=== PATIENT | male | born 1985 | race Caucasian/White ===

== ENCOUNTER 2018-09-14 20:21 | Emergency (ER) | payer SELFPAY ==
--- NOTE | 2018-09-14 21:08 | EDM.PDOCBH ---
ED HPI GENERAL MEDICAL PROBLEM - General Chief Complaint: Drug or Alcohol Abuse Stated Complaint: SEEING THINGS HEARING THINGS Time Seen by Provider: 09/14/18 20:32 Source of Information: Reports: Patient, Family (), RN Notes Reviewed History Limitations: Reports: No Limitations - History of Present Illness INITIAL COMMENTS - FREE TEXT/NARRATIVE: The patient states that he started abusing Adderall when he was 11 years old, and has been smoking methamphetamine on and off since he was 19 years old. He states that he has been to inpatient treatment twice, the first time for 90 days in 2011, the second time for 11 days, before signing himself out, and 2014. He has never gone to outpatient drug treatment. He states that he had remained clean for 3 and half years, up until 2 weeks ago, when he started snorting about 1 g per day. His last use was this past 09/12/2018. The patient now presents with symptoms of auditory and visual hallucinations for the past 2 days. He appears voice is talking about his cheating on him , and he believes that he saw his bed and move. He states that he has had similar hallucinations with prior methamphetamine use. He states that the symptoms persisted for about one week after he stopped using methamphetamine. The patient states that he was hospitalized only once for methamphetamine use, when a dose was mixed with heroin, and injected, in 2014. He has never been psychiatrically admitted. The patient does not have a PCP. - Related Data Allergies Allergy/AdvReac Type Severity Reaction Status Date / Time No Known Allergies Allergy Verified 09/14/18 20:33 Home Meds: Home Meds LORazepam [Ativan] 1 tab PO Q6H PRN #8 tablet 09/14/18 [Rx] Past Medical History Musculoskeletal History: Reports: Fracture (bilateral wrists, left forearm) Psychiatric History: Reports: Addiction (methamphetamine) - Past Surgical History Musculoskeletal Surgical History: Reports: ORIF (bilateral wrists, left forearm) Social & Family History - Tobacco Use Smoking Status *Q: Current Every Day Smoker Tobacco Use Within Last Twelve Months: Smokeless Tobacco (chews on occasion since 14 years old) Years of Tobacco use: 13 Packs/Tins Daily: 1 - Caffeine Use Caffeine Use: Reports: None - Alcohol Use Alcohol Use History: Yes Alcohol Use Frequency: Socially - Recreational Drug Use Recreational Drug Use: Yes Drug Use in Last 12 Months: Yes Recreational Drug Type: Reports: Amphetamines (Speed) (abused as a teenager), Marijuana/Hashish (last smoked 2013), Methamphetamine (last snorted 09/12/2018) - Living Situation & Occupation Living situation: Reports: , with Spouse, with Family (3 kids) Occupation: Employed (Car sales) ED ROS GENERAL - Review of Systems Review Of Systems: ROS reveals no pertinent complaints other than HPI. ED EXAM, BEHAVIORAL HEALTH - Physical Exam Exam: See Below Exam Limited By: No Limitations General Appearance: Alert, WD/WN, No Apparent Distress, Thin Eye Exam: Bilateral Eye: EOMI, Normal Inspection Ears: Normal External Exam, Hearing Grossly Normal Nose: Normal Inspection Throat/Mouth: Normal Inspection, Normal Lips, Normal Voice, No Airway Compromise Head: Atraumatic, Normocephalic Neck: Normal Inspection, Full Range of Motion Respiratory/Chest: No Respiratory Distress, Lungs Clear, Normal Breath Sounds, No Accessory Muscle Use Cardiovascular: Normal Peripheral Pulses, Regular Rate, Rhythm, No Edema, No Gallop, No JVD, No Murmur, No Rub GI/Abdominal: Normal Bowel Sounds, Soft, Non-Tender, No Organomegaly, No Distention, No Abnormal Bruit, No Mass (Male) Exam: Deferred Rectal (Males) Exam: Deferred Back Exam: Normal Inspection, Full Range of Motion, NT Extremities: Normal Inspection, Normal Range of Motion, No Pedal Edema, Normal Capillary Refill Neurological: Alert, Normal Cognition, No Motor/Sensory Deficits, Oriented x 3 Psychiatric: Normal Affect Skin Exam: Warm, Dry, Intact, Normal color, No rash COURSE, BEHAVIORAL HEALTH COMP - Course Vital Signs: Last Vital Signs Temp 36.0 C 09/14/18 20:31 Pulse 87 09/14/18 20:31 Resp 16 09/14/18 20:31 BP 120/73 09/14/18 20:31 Pulse Ox 100 09/14/18 20:31 Medical Clearance: 09/14/18 21:01 Patients who abuse stimulants such as amphetamine or methamphetamine can developed a psychosis that is indistinguishable from schizophrenia, with the exception that schizophrenia is permanent, and stimulant-induced psychosis resolves after the stimulant is discontinued. Since methamphetamine has a long half-life, the patient is correct in recalling that his hallucinations may have persisted for up to week after he stopped using methamphetamine, and I would expect the same this time, as well. Strictly speaking, while overdose from a stimulant, such as methamphetamine or cocaine, it may require emergent medical treatment, withdraw from stimulants do not require medical treatment, or "detox", like withdraw from depressants, such as alcohol or opioids, often do. That being said, I believe it would be appropriate in this case to help the patient with his symptoms with a small quantity of Ativan. This is just to treat his symptoms, and is not a medical requirement. I have also strongly encouraged the patient to follow-up at [facility] to get outpatient treatment and counseling, in order to reduce his likelihood of relapse. Departure - Departure Time of Disposition: 21:04 Disposition: Home, Self-Care 01 Condition: Good Clinical Impression: Methamphetamine abuse, Hallucination, drug-induced - Discharge Information *PRESCRIPTION DRUG MONITORING PROGRAM REVIEWED*: Not Applicable *COPY OF PRESCRIPTION DRUG MONITORING REPORT IN PATIENT ABDULKADIR: Not Applicable Prescriptions: LORazepam [Ativan] 1 tab PO Q6H PRN #8 tablet PRN Reason: Agitation Instructions: Stimulant Use Disorder-Methamphetamines Referrals: PCP,None [Primary Care Provider] - Additional Instructions: You were seen in the emergency room after developing both auditory and visual hallucinations, after snorting methamphetamine for the past 2 weeks. You have been prescribed the anti-anxiety medicine Ativan. Take one tablet of Ativan up to every 6 hours, as needed for agitation and hallucinations. If you require additional medication, please follow-up with your PCP - the ER does not refill medicines. We strongly recommend that you follow-up at [facility] Human Services: [address] [phone] If any other problems, please do not hesitate to return to the ER.
== END 2018-09-14 21:12 | disposition home or self-care (01) ==
LOC: JD.ED 20:21
DX: F15.10 Other stimulant abuse, uncomplicated (principal); R44.3 Hallucinations, unspecified; R44.1 Visual hallucinations; F17.210 Nicotine dependence, cigarettes, uncomplicated
CPT/HCPCS: 99284

== ENCOUNTER 2021-03-25 18:22 | Emergency (ER) | payer SELFPAY ==
--- NOTE | 2021-03-25 19:42 | EDM.PDOC ---
ED HPI GENERAL MEDICAL PROBLEM - General Chief Complaint: Upper Extremity Injury/Pain Stated Complaint: PAIN IN BOTH WRISTS/HANDS Time Seen by Provider: 03/25/21 19:37 - History of Present Illness INITIAL COMMENTS - FREE TEXT/NARRATIVE: 35-year-old male presents to the emergency room with bilateral hand pain. Patient usually wakes up with his hands quite sore and numb. He has a hard time hanging onto stuff in the morning. Both hands are equally involved. Patient has had trauma to his wrist in the past he has fractured both of them. Patient does hard industrial work. The pain is usually much worse first thing in the m orning than it is in the day. He has not had significant shoulder problems with this. Arm Pain Score (Numeric/FACES): 8 - Related Data Allergies Allergy/AdvReac Type Severity Reaction Status Date / Time No Known Allergies Allergy Verified 03/25/21 19:20 Home Meds: Home Meds LORazepam [Ativan] 1 tab PO Q6H PRN #8 tablet 09/14/18 [Rx] Naproxen [Naprosyn] 500 mg PO BID #30 tablet 03/25/21 [Rx] Past Medical History - Past Health History Medical/Surgical History: Denies Medical/Surgical History Musculoskeletal History: Reports: Fracture Psychiatric History: Reports: Addiction - Past Surgical History Musculoskeletal Surgical History: Reports: ORIF Other Musculoskeletal Surgeries/Procedures:: arm surgery Social & Family History - Tobacco Use Tobacco Use Status *Q: Current Every Day Tobacco User Years of Tobacco use: 10 Packs/Tins Daily: 1 - Caffeine Use Caffeine Use: Reports: Coffee - Recreational Drug Use Recreational Drug Use: Yes Recreational Drug Type: Reports: Marijuana/Hashish - Living Situation & Occupation Living situation: Reports: , with Spouse, with Family (3 kids) Occupation: Employed (Car sales) Review of Systems - Review of Systems Review Of Systems: See Below Constitutional: Reports: No Symptoms Respiratory: Reports: No Symptoms Cardiovascular: Reports: No Symptoms GI/Abdominal: Reports: No Symptoms ED EXAM, GENERAL - Physical Exam Exam: See Below Exam Limited By: No Limitations General Appearance: Alert, No Apparent Distress Head: Atraumatic, Normocephalic Neck: Normal Inspection, Supple, Non-Tender, Full Range of Motion Respiratory/Chest: No Respiratory Distress, Lungs Clear, Normal Breath Sounds, No Accessory Muscle Use, Chest Non-Tender Cardiovascular: Normal Peripheral Pulses, Regular Rate, Rhythm, No Edema, No Gallop, No JVD, No Murmur, No Rub Extremities: Other (Patient has positive Tinel's sign bilaterally positive Phalen's and reverse Phalen's bilaterally.) Neurological: Oriented, CN II-XII Intact Course - Vital Signs Last Recorded V/S: Last Vital Signs Temp 36.3 C 03/25/21 19:19 Pulse 83 03/25/21 19:19 Resp 20 03/25/21 19:19 BP 125/64 03/25/21 19:19 Pulse Ox 100 03/25/21 19:19 - Orders/Labs/Meds Orders: Active Orders 24 hr Category Date Time Status Acetaminophen/HYDROcodone [[place] 325-5 MG] Med 03/25/21 20:03 Once 1 tab PO ONETIME ONE Durable Medical Equipment for Discharge [DME for Oth 03/25/21 19:50 Ordered Discharge] [COMM] Stat - Re-Assessments/Exams Free Text/Narrative Re-Assessment/Exam: 03/25/21 19:53 I will treat with bilateral wrist splints he appears to have carpal tunnel bilaterally the splints will limit motion and facilitate healing as well as limit nighttime distortion. 03/25/21 20:07 Departure - Departure Time of Disposition: 20:07 Disposition: Home, Self-Care 01 Clinical Impression: Bilateral carpal tunnel syndrome - Discharge Information Referrals: PCP,None [Primary Care Provider] - Forms: ED Department Discharge Additional Instructions: Return to the emergency room with any questions problems or worsening symptoms. Follow-up at the hospital clinic in 1 week for recheck to see how your wrists are doing. Their phone number is [phone] Wear the splints pretty much at all times the most important time to wear them is at night. You have been started on Naprosyn this is an ibuprofen like medicine take this twice daily with breakfast and supper do not take ibuprofen with this. Sepsis Event Note (ED) - Focused Exam Vital Signs: Vital Signs Temp Pulse Resp BP Pulse Ox 03/25/21 19:19 36.3 C 83 20 125/64 100 - My Orders Last 24 Hours: My Active Orders 03/25/21 19:50 Durable Medical Equipment for Discharge [DME for Discharge] [COMM] Stat 03/25/21 20:03 Acetaminophen/HYDROcodone [[place] 325-5 MG] 1 tab PO ONETIME ONE - Assessment/Plan Last 24 Hours: My Active Orders 03/25/21 19:50 Durable Medical Equipment for Discharge [DME for Discharge] [COMM] Stat 03/25/21 20:03 Acetaminophen/HYDROcodone [[place] 325-5 MG] 1 tab PO ONETIME ONE
[2021-03-25] MEDS ORDERED: Acetaminophen/HYDROcodone 325-5 MG Tab PO ONE (20:03)
== END 2021-03-25 20:53 | disposition home or self-care (01) ==
LOC: JD.ED 18:22
PROC: 2W3DX1Z Immobilization of Left Lower Arm using Splint (ICD-10-PCS; principal; 2021-03-25)
PROC: 2W3CX1Z Immobilization of Right Lower Arm using Splint (ICD-10-PCS; 2021-03-25)
DX: G56.03 Carpal tunnel syndrome, bilateral upper limbs (principal); Z72.0 Tobacco use
CPT/HCPCS: 29125; 99283; A9270

== ENCOUNTER 2021-04-04 00:12 | Emergency (ER) | payer SELFPAY ==
--- NOTE | 2021-04-04 01:18 | EDM.PDOC ---
ED HPI GENERAL MEDICAL PROBLEM - General Chief Complaint: Upper Extremity Injury/Pain Stated Complaint: ARM PAIN Time Seen by Provider: 04/04/21 00:52 Source of Information: Reports: Patient, Old Records (ED visit 03/25/2021) History Limitations: Reports: No Limitations - History of Present Illness INITIAL COMMENTS - FREE TEXT/NARRATIVE: Mr. Santos is a 35-year-old man who, medical records indicate, was seen in this ED on 03/25/2021 with a complaint of bilateral hand numbness and pain for 1 month. His symptoms were most pronounced in the morning, and improved over the course of the day. He was felt to have bilateral carpal tunnel syndrome. He was treated with a single tablet of [place] 5/325, and provided with bilateral Velcro wrist splints. He was discharged home with a prescription for naproxen 500 mg po BID #30. He was instructed to follow-up in the clinic in 1 week. The patient now returns the ED stating that his hand symptoms have been going on for 2 months,, with pain radiating up his right upper extremity. He stated that his symptoms are worse at night, where he will often wake up with his hands tingling, and he confirmed that his symptoms tend to improve over the course of the day. He stated that he had not followed up in the clinic because of his work, but also because of fear of loss of income. He stated that neither the wrist splints nor naproxen were helping, although he is currently wearing a wrist splint on his right wrist. Here in the ED this morning, the patient is found to be hemodynamically stable, afebrile, saturating 96% on room air. He appears to be comfortable, in no acute distress. Other than the bilateral hand issue, the patient denies having a recent fever, chills, sore throat, ear pain, nasal or sinus congestion, cough, dyspnea, chest pain, palpitations, nausea, vomiting, constipation, diarrhea, abdominal pain, urinary symptoms, recent weight gain or weight loss, recent bloody bowel movements or black bowel movements, recent joint aches, headaches, or rashes. I reviewed the PMHx/PSHx/SocHx, which was reviewed with the patient by the RN. The patient does not have a PCP. Right Arm Pain Score (Numeric/FACES): 9 - Related Data Allergies Allergy/AdvReac Type Severity Reaction Status Date / Time No Known Allergies Allergy Verified 03/25/21 19:20 Home Meds: Home Meds LORazepam [Ativan] 1 tab PO Q6H PRN #8 tablet 09/14/18 [Rx] Naproxen [Naprosyn] 500 mg PO BID #30 tablet 03/25/21 [Rx] Past Medical History Musculoskeletal History: Reports: Fracture, Other (See Below) (Bilateral carpal tunnel syndrome) Psychiatric History: Reports: Addiction (methamphetamine) - Past Surgical History Musculoskeletal Surgical History: Reports: ORIF Other Musculoskeletal Surgeries/Procedures:: arm surgery Social & Family History - Tobacco Use Tobacco Use Status *Q: Unknown Ever Used Tobacco - Caffeine Use Caffeine Use: Reports: Coffee - Recreational Drug Use Recreational Drug Use: Yes Recreational Drug Type: Reports: Methamphetamine - Living Situation & Occupation Living situation: Reports: , with Spouse, with Family (3 kids) Occupation: Employed (Car sales) Review of Systems - Review of Systems Review Of Systems: Comprehensive ROS is negative, except as noted in HPI. ED EXAM, GENERAL - Physical Exam Exam: See Below Exam Limited By: No Limitations General Appearance: Alert, WD/WN, No Apparent Distress Extremities: Other (No visible abnormality to either wrist, such as swelling, erythema, ecchymosis, or abrasion. Phalen maneuver induces tingling/numbness in both hands within seconds. Bilateral Tinel test induces an electric shock sensation in each hand.) Course - Vital Signs Last Recorded V/S: Last Vital Signs Temp 36.9 C 04/04/21 00:19 Pulse 80 04/04/21 00:19 Resp 14 04/04/21 00:19 BP 125/75 04/04/21 00:19 Pulse Ox 96 04/04/21 00:19 - Re-Assessments/Exams Free Text/Narrative Re-Assessment/Exam: 04/04/21 01:14 The patient has multiple signs and symptoms of bilateral carpal tunnel syndrome. He has not gotten relief from wearing a right sided wrist splint, or by taking naproxen. I explained to the patient that there are no medical treatments for carpal tunnel syndrome, that the treatment is surgical, and, once identified, better to be performed earlier than later, for if it is put off too long, it can lead to permanent nerve damage that is not reversible with surgery. I therefore recommended that I refer him to Dr. Villatoro for further evaluation. I explained the Dr. Villatoro may wish to perform electrical conduction studies to confirm the diagnosis. The patient expressed reluctance about following up, again indicating a concern about loss of income. He asked me to give him a medicine to treat his symptoms. I again explained that there are no medical treatments for carpal tunnel syndrome, that the treatment is surgical. I explained that I was not surprised that neither the naproxen nor wrist splints helped. The patient then became insistent that I give him what he had been given when seen here on 03/25/2021 - Sturgis. I explained that St[place]is will not help with his symptoms. The patient then became hostile and stated that this place is stupid. I informed him that Dr. Villatoro's number would be on his discharge instructions, however, the patient then left the ED without waiting for discharge instructions. Departure - Departure Time of Disposition: 01:13 Disposition: Eloped 07 Condition: Good Clinical Impression: Bilateral carpal tunnel syndrome, Drug-seeking behavior - Discharge Information *PRESCRIPTION DRUG MONITORING PROGRAM REVIEWED*: No *COPY OF PRESCRIPTION DRUG MONITORING REPORT IN PATIENT ABDULKADIR: No Referrals: PCP,None [Primary Care Provider] - Forms: ED Department Discharge Sepsis Event Note (ED) - Evaluation Sepsis Screening Result: No Definite Risk - Focused Exam Vital Signs: Vital Signs Temp Pulse Resp BP Pulse Ox 04/04/21 00:19 36.9 C 80 14 125/75 96
== END 2021-04-04 01:30 | disposition left against medical advice (07) ==
LOC: JD.ED 00:12
DX: G56.03 Carpal tunnel syndrome, bilateral upper limbs (principal); Z76.5 Malingerer [conscious simulation]
CPT/HCPCS: 99283